=== PATIENT | male | born 1970 | race Caucasian/White ===

== ENCOUNTER 2016-05-31 05:40 | Inpatient (IN) | payer OTHER ==
[2016-05-16 10:47] LABS: HEMATOCRIT 41.2 % (40.0-51.0); HEMOGLOBIN 14.9 g/dL (13.6-17.8)
[2016-05-16 10:53] LABS: CALCIUM, SERUM 8.6 MG/DL (8.5-10.4); CHLORIDE, SERUM 106 MMOL/L (96-112); CO2 (CARBON DIOXIDE) 27 MMOL/L (24-34); CREATININE 0.88 MG/DL (0.70-1.30); GFR AFRICAN AMERICAN 120 ML/MIN (>=60); GFR NON AFRICAN AMERICAN 104 ML/MIN (>=60); GLUCOSE, SERUM 94 MG/DL (60-99); POTASSIUM, SERUM 4.1 MMOL/L (3.5-5.3); SODIUM, SERUM 141 MMOL/L (135-148)
[2016-05-16 10:54] LABS: BUN (BLOOD UREA NITROGEN) 27 MG/DL (6-23)
--- NOTE | ~2016-05-31 | OP ---
Record Of Operation [facility] [address] [place]. [address] NAME: CEDRIC MORFIN : 70 STATUS : ADM IN PAT#: [id number] AGE: 45 ADM/REG DATE : 05/31/16 MR#: [id number] REPORT SERV DATE: 05/31/16 DICTATED BY: CEDRIC MILLER DATE: 05/31/16 REPORT STATUS : Draft TRANSCRIBED BY: MODL DATE: 05/31/16 DATE OF PROCEDURE: 05/31/2016 PREOPERATIVE DIAGNOSES: 1. Marfan syndrome. 2. Scoliosis with approximately 75 degree curve. 3. Lumbar disk disease and stenosis, with lumbar radiculopathy, with left leg pain and weakness. POSTOPERATIVE DIAGNOSES: 1. Marfan syndrome. 2. Scoliosis with approximately 75 degree curve. 3. Lumbar disk disease and stenosis, with lumbar radiculopathy, with left leg pain and weakness. PROCEDURE: 1. T11 to ilium segmental spinal instrumentation using Medtronic pedicle screws. 2. Use of intraoperative O-arm CT scan with computer navigation. 3. Use of neuromonitoring. SURGEON: Cedric Miller DO. ANESTHESIA: General. ESTIMATED BLOOD LOSS: Approximately 1250 mL of which approximately 1100 was returned via Cell Saver, as well as approximately 2300 mL of crystalloid. COMPLICATIONS: None. INDICATIONS: The patient is a pleasant 45-year-old with progressive scoliosis, difficulty with ambulating. After discussion of risks and benefits, and progressive deformity, he elected to proceed with surgical intervention. PROCEDURE IN DETAIL: I identified the patient in the holding area, consent was obtained, went to the operating room, underwent general anesthesia with endotracheal intubation, prepped and draped in the usual sterile fashion, operative safety pause was performed, then we proceeded with surgery. A midline longitudinal incision was made from T11 down to the ilium. Paraspinous muscle subperiosteally elevated. Self-retaining retractors were placed. O-arm registration frame was placed on the spinous process. O-arm was brought back in for CT scan. Computer registration materials verified and then under computer guidance, pedicle screws from Medtronic were placed from T11 down to the ilium. O-arm was brought back in to confirm good placement of all the pedicle screws. Due to the patient's being on Coumadin, and subsequent Lovenox, as well as Marfan syndrome, there was significant bleeding, he had lost approximately 1250 mL of blood, and at that point, I decided to stage the procedure and finished at another point given the degree of blood loss, the remaining decompression, interbody fusion, and decortication portions would have caused significant additional Record Of Operation [place] [address] [place]. [address] NAME: CEDRIC MORFIN : 70 STATUS : ADM IN PAT#: [id number] AGE: 45 ADM/REG DATE : 05/31/16 MR#: [id number] REPORT SERV DATE: 05/31/16 DICTATED BY: CEDRIC MILLER DATE: 05/31/16 REPORT STATUS : Draft TRANSCRIBED BY: MODL DATE: 05/31/16 bleeding, and put the patient at higher risk. As a result, I stopped at this point, a drain was placed. A gram of vancomycin powder was sprinkled over the surgical wound. Layered closure was performed. Sterile dressings were applied. The patient returned to the recovery room, awoke, and extubated. We will plan to return to surgery on Thursday for the second stage of the procedure once he has had time to normalize his hemodynamic status. CORRINA/JOSHUA Cedric Miller DO / [id number] CC: Cedric Miller DO
--- NOTE | ~2016-05-31 | PREOPHP ---
PreOp History and Physical [address] [place]. [address] NAME: CEDRIC MORFIN : 70 STATUS : ADM IN PAT#: [id number] AGE: 45 ADM/REG DATE : 05/31/16 MR#: [id number] REPORT SERV DATE: 05/31/16 DICTATED BY: CEDRIC TRAN DATE: 05/31/16 REPORT STATUS : Draft TRANSCRIBED BY: JOSHUA DATE: 05/31/16 CHIEF COMPLAINT: Progressive neuromuscular scoliosis with history of Marfan's. HISTORY OF PRESENT ILLNESS: The patient is a 45-year-old with progressive scoliosis, history of Marfan's disease. He has failed conservative treatment and after progressive deformity, the patient elects to proceed with surgical intervention. He also complains of significant left lower extremity pain. REVIEW OF SYSTEMS: He denies chest pain, shortness of breath, and bowel or bladder changes. ALLERGIES: DENIED. HOME MEDICATIONS: Losartan, metoprolol, warfarin. FAMILY HISTORY: Noncontributory. PAST MEDICAL HISTORY: Cardiac disease with Marfan syndrome. PHYSICAL EXAMINATION: VITALS: Height 6 feet 6 inches, weight 200, BMI 23.1. GENERAL: The patient is healthy appearing, no acute distress at this time. PSYCH: Alert and oriented x3. Normal mood and affect. Gait is somewhat antalgic. VASCULAR: No extremity swelling. SPINE: Scoliotic curvature. Somewhat forward flexed. HEART: Regular rate and rhythm. LUNGS: Clear to auscultation. ABDOMEN: Soft, nontender, nondistended. Good bowel sounds. BREASTS: Both deferred. RECTAL: Both deferred. IMAGING: Plain imaging showed a 9.6 cm positive sagittal balance and a scoliosis of 73 degrees from T12 to L4. MRI scan was also reviewed. ASSESSMENT: Progressive neuromuscular scoliosis with history of Marfan. PLAN: The patient presents today for surgical intervention. Consent was obtained. All questions were answered and ready to proceed with surgery. CORRINA/JOSHUA Cedric Tran DO / [id number] PreOp History and Physical [address] [place]. [address] NAME: HOLGERCEDRIC WAYNE SHEKHAR : 70 STATUS : ADM IN PAT#: [id number] AGE: 45 ADM/REG DATE : 05/31/16 MR#: [id number] REPORT SERV DATE: 05/31/16 DICTATED BY: CEDRIC TRAN DATE: 05/31/16 REPORT STATUS : Draft TRANSCRIBED BY: MODL DATE: 05/31/16 CC: Cedric Tarn, DO
--- NOTE | ~2016-05-31 | DS ---
Discharge Summary [place] [id number] [facility] [place]. [address] NAME: CEDRIC MORFIN : 70 STATUS : DIS IN PAT#: [id number] AGE: 45 ADM/REG DATE : 05/31/16 MR#: [id number] REPORT SERV DATE: 06/19/16 DICTATED BY: CEDRIC MILLER DATE: 06/18/16 REPORT STATUS : Draft TRANSCRIBED BY: MODL DATE: 06/18/16 Data Collection from hospitalization DISCHARGE DIAGNOSES: 1. Marfan syndrome. 2. Scoliosis with approximately 75-degree curve. 3. Lumbar disk disease and stenosis with lumbar radiculopathy with left leg pain and weakness. 4. Hypertension. 5. History of atrial fibrillation. CONSULTATION: Dr. Kasia Duke. PROCEDURES: 1. T11 to ilium segmental spinal instrumentation using Medtronic pedicle screws, use of intraoperative O-arm CT scan with computer navigation, use of neuromonitoring, 05/31/2016. 2. Second-stage T11-S1 posterolateral fusion bilaterally, L1-S1 laminectomy and bilateral foraminotomies, L4-L5 transforaminal lumbar interbody fusion, placement of Medtronic PEEK interbody spacer, L4-L5 local morselized autograft and allograft bone matrix, neuro monitoring, bone morphogenetic protein, correction of sagittal and coronal plane deformity, placement of rods to connect the previously placed pedicle screws, T11 to the ilium, 06/03/2016. PATHOLOGY: Bone and tissue, thoracic/lumbar-fragments of bone and cartilage with degenerative changes, skeletal muscle and bone with trilineage, hematopoiesis elements present. Bone and tissue thoracic/lumbar spine-fragments of hyaline cartilage with degenerative changes. Fibroadipose tissue, dense fibrous connective tissue, and bone present. DISCHARGE MEDICATIONS: Flexeril 10 mg every eight hours as needed, Cozaar 50 mg every evening, Lopressor 50 mg at bedtime, Percocet 5/325 one to two tablets every four hours as needed, Jantoven 10 mg daily, Coumadin as instructed. CONDITION ON DISCHARGE: Stable. DISPOSITION: The patient was discharged home on a vegetarian diet with activities as instructed. He would follow up with [facility], 06/16/2016 with [facility], 06/11/2016. HOSPITAL COURSE: This is a 45-year-old man, who has a history of Marfan disease. He had failed conservative treatment and after progressive deformity, he elected to proceed with surgical intervention. He had also complained of significant left lower extremity pain. Treatment options were discussed and it was elected to proceed with surgical intervention. He was admitted to the hospital at this time for further evaluation and treatment. Upon admission, he was taken to the operating room, where he underwent the above-mentioned procedure. He tolerated this well. There were no complications. Postoperatively, he was seen by Dr. Kasia Duke, regarding medical management including management of hypertension Discharge Summary [address] [address] NAME: CEDRIC MORFIN SHEKHAR : 70 STATUS : DIS IN PAT#: [id number] AGE: 45 ADM/REG DATE : 05/31/16 MR#: [id number] REPORT SERV DATE: 06/19/16 DICTATED BY: CEDRIC MILLER DATE: 06/18/16 REPORT STATUS : Draft TRANSCRIBED BY: MODNirali DATE: 06/18/16 medications and managing his history of atrial fibrillation and Coumadin. Home medications for hypertension were restarted with losartan and metoprolol. The patient seemed to be in sinus rhythm at this time; however, we were going to check an EKG. The patient said that the atrial fibrillation in the past had resolved after he had cardiac ablation. The patient has had aortic valve replacement and mitral valve replacement with metallic AOV. He is on Coumadin for this. The Coumadin was going to be restarted if this was okay with Ortho. We would take daily PT and INR. CBC and BMP would also be checked the following morning. On postop day #1, he had no new complaints. He was on a PRESS [employer] pump. Losartan would be held for systolic blood pressure less than 90. He was up sitting in a bedside chair. Blood pressure was stable. Plans were being made for stage II surgical intervention to be performed. He was not going to be placed on heparin or Coumadin at this time. He was evaluated by Physical Therapy. He did develop some nausea and distention in his abdomen. He had not had a bowel movement. He was felt to have a mild ileus. Narcotics were decreased. An enema was given as well as Relistor. On 06/03/2016, he was taken back to the operating room where he underwent the above-mentioned procedure. He tolerated this well and there were no complications. On the 06/04/2016, he had no chest pain. He appeared comfortable. Postural hypotension had resolved. He was evaluated by Occupational and Physical Therapy. On 06/06/2016, his Coumadin was restarted. He was on a heparin drip. He continued to do well. He had no shortness of breath or chest pain. He was ambulating in the halls. He did complain of some bilateral foot numbness. Toprol was continued as well as his Coumadin. INR level had increased to 2.1. On 06/10/2016, his pain was controlled. He was doing well. He was eager for discharge. Discharge instructions were given. IV heparin was stopped. Due to his improved and stable condition, he was discharged home with the above-stated instructions. Information collected by: Shaila Warner I submit the above information as my discharge summary. MAMTA/JOSHUA Cedric Miller DO / [id number] CC: Cedric Miller DO
--- NOTE | ~2016-05-31 | CN ---
Consultation Report [facility] [address] [place]. [address] NAME: CEDRIC MORFIN : 70 STATUS : ADM IN [facility]#: [id number] AGE: 45 ADM/REG DATE : 05/31/16 MR#: [id number] REPORT SERV DATE: 05/31/16 DICTATED BY: MARJORIE CARRION DATE: 05/31/16 REPORT STATUS : Draft TRANSCRIBED BY: MODL DATE: 05/31/16 CONSULTATION DATE OF CONSULTATION: 05/31/2016 REASON FOR CONSULTATION: Medical management including management of his hypertension, medications, and managing his history of atrial fibrillation and Coumadin REASON FOR ADMISSION: Operative management of severe spinal scoliosis that is symptomatic. The operation that the patient underwent is actually T11 to ilium spinal instrumentation with Medtronic pedicle screws. When I examined the patient at bedside, he was back from surgery and he was on a SALES PROJECT ADMINISTRATOR pump. The patient actually is asymptomatic at that time. He says that he has no chest pain or shortness of breath. He does complain of some back pain, but other than that, there are no other new complaints. He denies any blurry vision, dysphagia dyspnea. He denies any nausea, vomiting, abdominal pain, diarrhea, dysuria, hematuria, joint pains, etc. REVIEW OF SYSTEMS: As above. PAST MEDICAL HISTORY: Significant for: 1. Hypertension. 2. Marfan syndrome with valve abnormalities in his aortic valve and mitral valve which required cardiothoracic surgery and replacement of both valves with a metallic valve according to the patient. The patient also has had is aortic root repaired, this is in the past. 3. History of atrial fibrillation, which resolved and went into sinus rhythm after he had cardiac ablation. Currently, the patient is in sinus rhythm. He says that he takes his Coumadin for the metallic aortic valve. PAST SURGICAL HISTORY: As above. FAMILY HISTORY: Positive for Marfan syndrome in many of his relatives including his grandfather and other people in the family including brother and etc. His daughter also has Marfan syndrome and is 12 years old now. SOCIAL HISTORY: The patient does not smoke or any tobacco. The patient denies any significant alcohol use. The patient denies any illegal drug use. 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 Medications that he takes at home and allergies are as follows. ALLERGIES: THE PATIENT HAS NO KNOWN DRUG ALLERGIES. MEDICATIONS: His medications at home include losartan 50 mg once a day, Lopressor 50 mg once Consultation Report [address] [place]. [address] NAME: CEDRIC MORFIN : 70 STATUS : ADM IN PAT#: [id number] AGE: 45 ADM/REG DATE : 05/31/16 MR#: [id number] REPORT SERV DATE: 05/31/16 DICTATED BY: MARJORIE CARRION DATE: 05/31/16 REPORT STATUS : Draft TRANSCRIBED BY: MODL DATE: 05/31/16 at bedtime, and Jantoven 10 mg once a day except which he takes 5 mg. PHYSICAL EXAMINATION: GENERAL: The patient is alert, oriented, and is able to answer most of my questions appropriately. His skin and mucous membranes appear moist and he is on a SALES PROJECT ADMINISTRATOR pump right now back from surgery. VITAL SIGNS: Show that his blood pressure is 104/78, pulse is 63 per minute and regular, respirations 16 per minute, and O2 sats 94% on 4 L of oxygen currently. HEENT: Unremarkable. GENERAL APPEARANCE: The patient does have a marfanoid features especially in his hands with excessively long fingers. There is no facial asymmetry or facial droop. NECK: There is no JVD, thyromegaly, or lymphadenopathy. CARDIOVASCULAR SYSTEM: S1, S2 appreciated. Sinus rhythm noted. Metallic aortic valve is audible. RESPIRATORY SYSTEM: Clear lungs. No rales or rhonchi noted at this time. ABDOMEN: Soft, nontender, nondistended. No hepatosplenomegaly or organomegaly noted at this time. EXTREMITIES: No edema. Pedal pulses are well felt. NEUROLOGIC: Essentially normal. ORTHOPEDIC: The patient has had extensive spinal surgery namely instrumentation with metal screws all the way from T11 all the way to the iliac bone. This is to correct his scoliosis. PSYCHIATRIC: Normal affect. LABORATORY DATA: Labs that I have on this patient from 05/31/2016 include CBC that shows WBC count of 9.8, hemoglobin 12.2, hematocrit 35.1, and platelet count of 218. Electrolyte profile shows sodium 140, potassium 4.7, BUN 15, and creatinine 0.7. I also have a pro time on this patient that shows an INR of 1.4. ASSESSMENT: 1. We will go ahead and restart his home medications for hypertension namely losartan and metoprolol. 2. History of atrial fibrillation. Right now, the patient seems to be in sinus rhythm; however, we will check an EKG. The patient says that the atrial fibrillation in the past has resolved after he has had cardiac ablation. 3. History of AOV replacement and mitral valve replacement with metallic AOV. The patient is on Coumadin for this. We will go ahead and restart Coumadin only in the morning if okay with Dr. Miller. We will go ahead and check a daily PT/INR. We will check a CBC and BMP in the morning too. 4. In the meantime for bridge therapy, we will start him on IV heparin per cardiac protocol without any bolus again if okay with Dr. Miller today. If Dr. Miller does not feel that heparin is a good option today as he has just had back surgery, we will not start the heparin today. We will follow the patient along with you. Thank you for the consultation. Consultation Report [address] [address] NAME: CEDRIC MORFIN : 70 STATUS : ADM IN [facility]#: [id number] AGE: 45 ADM/REG DATE : 05/31/16 MR#: [id number] REPORT SERV DATE: 05/31/16 DICTATED BY: MARJORIE CARRION DATE: 05/31/16 REPORT STATUS : Draft TRANSCRIBED BY: JOSHUA DATE: 05/31/16 MARTITA/JOSHUA Marjorie Carrion M.D. / [id number] CC: Cedric Miller DO
--- NOTE | ~2016-05-31 | OP ---
Record Of Operation [facility] [address] [place]. [address] NAME: CEDRIC MORFIN : 70 STATUS : ADM IN PAT#: [id number] AGE: 45 ADM/REG DATE : 05/31/16 MR#: [id number] REPORT SERV DATE: 06/03/16 DICTATED BY: CEDRIC TRAN DATE: 06/03/16 REPORT STATUS : Draft TRANSCRIBED BY: MODL DATE: 06/03/16 DATE OF PROCEDURE: 06/03/2016 PREOPERATIVE DIAGNOSES: 1. Progressive neuromuscular scoliosis with history of Marfan syndrome. 2. L1-S1 disk disease and stenosis with lumbar radiculopathy. 3. Kyphotic deformity. POSTOPERATIVE DIAGNOSES: 1. Progressive neuromuscular scoliosis with history of Marfan syndrome. 2. L1-S1 disk disease and stenosis with lumbar radiculopathy. 3. Kyphotic deformity. PROCEDURES: This is the second stage of the procedure. The procedure started on Thursday and returning to the operating room today. Today, we performed: 1. T11-S1 posterolateral fusion bilaterally. 2. L1-S1 laminectomy and bilateral foraminotomies. 3. L4-L5 transforaminal lumbar interbody fusion. 4. Placement of Medtronic PEEK interbody spacer, L4-L5. 5. Local morcellized autograft and allograft bone matrix. 6. Neuromonitoring. 7. Bone morphogenic protein. 8. Correction of sagittal and coronal plane deformity. 9. Placement of rods to connect the previously placed pedicle screws, T11 to the ilium. SURGEON: Cedric Tran DO. ANESTHESIA: General. ESTIMATED BLOOD LOSS: 700 mL. COMPLICATIONS: None. INDICATIONS: The patient is a 45-year-old, being brought back for a second stage for the procedure started Thursday. Please see that operative note for details. DESCRIPTION OF PROCEDURE: I identified the patient in the holding area. Consent was obtained. Went to the operating room. Underwent general anesthesia with endotracheal intubation. Prepped and draped in the usual sterile fashion. Operative safety pause was performed, then we proceeded with surgery. The previously made incision was opened. Sutures were removed. A rongeur was used to remove the spinous processes and underlying lamina, L1 down to S1. Abimael removed remaining lamina, underlying ligamentum flavum, and performed foraminotomies and partial facetectomies bilaterally L1-S1 fraying the L1-S1 nerve roots. The disk space at the L4-5 level was identified on the right side and incised with a knife. Disk space was prepared with curettes, rasp, and endplate cutters. Trial spacers were implanted. Local morcellized autograft and allograft bone matrix were placed in the L4 Record Of Operation [address] [address] NAME: CEDRIC MORFIN SHEKHAR : 70 STATUS : ADM IN PAT#: [id number] AGE: 45 ADM/REG DATE : 05/31/16 MR#: [id number] REPORT SERV DATE: 06/03/16 DICTATED BY: CEDRIC TRAN DATE: 06/03/16 REPORT STATUS : Draft TRANSCRIBED BY: JOSHUA DATE: 06/03/16 5 disk space followed by a Medtronic PEEK interbody spacer with allograft bone matrix. Rods were then cut and contoured to appropriate shape and length, placed over the screws from T11 to the ilium that were placed previously. The emmanuel was gradually reduced down to the screws bilaterally to allow for both coronal and sagittal plane reduction of deformity. Setscrews were placed and final tightened. Final reduction maneuvers were made with in situ Benders for good correction. High-speed decorticating naga was used to decorticate the remaining bony surfaces T11 to the ilium. Irrigation was performed. Hemostasis was achieved. Local morcellized autograft and allograft bone matrix, and bone morphogenic protein were each packed over the decorticated surfaces T11 to the ilium. Final AP and lateral images were obtained. A gram of vancomycin powder was sprinkled over the surgical wound. Subfascial drain was placed. Layered closure was performed. Sterile dressings were applied. The patient was awoken and extubated, and taken to the recovery room in stable condition. OPERATIVE FINDINGS: Neuromuscular scoliosis with severe disk disease and stenosis. No sustained neuromonitoring alerts. CORRINA/JOSHUA Cedric Tran DO / [id number] CC: Cedric Tran, DO
[~2016-05-31 05:40] MED LIST: C5 PO; COZ50 PO; JANTOVEN10 MG PO; LOP50 PO; LOVENOX
[2016-05-31 06:39] LABS: INTERNATIONAL NORMAL RATI 1.4 UNITS (-)
[2016-05-31 06:40] LABS: PROTIME (NOT ORD) 17.2 SEC (12.0-14.5)
[2016-05-31 11:43] LABS: BASOPHILS 0.1 %; BASOPHILS ABSOLUTE 0.01 10/3/uL (0.0-0.16); EOSINOPHILS 0 %; HEMOGLOBIN 12.2 g/dL (13.6-17.8); IMMATURE GRANULOCYTES 0.8 %; IMMATURE GRANULOCYTES ABSOLUTE 0.08 10/3/uL (0.0-0.11); LYMPHOCYTES ABSOLUTE 0.49 10/3/uL (0.67-4.30); MEAN CORPUS HGB CONC 34.8 g/dL (32.0-36.0); MEAN CORPUSCULAR HEMOGLOB 31.7 pg (26.0-34.0); MEAN CORPUSCULAR VOLUME 91.2 fL (80-100); MEAN PLATELET VOLUME 9.3 fL (9.2-13.0); MONOCYTES 1.7 %; MONOCYTES ABSOLUTE 0.17 10/3/uL (0.21-1.20); NEUTROPHILS 92.4 %; NEUTROPHILS ABSOLUTE 9.07 10/3/uL (2.02-8.40); PLATELET COUNT 218 10/3/uL (150-400); RBC DISTRIBUTION WIDTH 12.2 % (12.0-16.0); RED CELL COUNT 3.85 10/6/uL (4.7-6.1); WHITE BLOOD CELLS 9.8 10/3/uL (4.5-10.5)
[2016-05-31 11:46] LABS: HEMATOCRIT 35.1 % (40.0-51.0); MANUAL DIFF NO %
[2016-05-31 11:57] LABS: CHLORIDE, SERUM 108 MMOL/L (96-112); CO2 (CARBON DIOXIDE) 26 MMOL/L (24-34); CREATININE 0.74 MG/DL (0.70-1.30); GFR AFRICAN AMERICAN 129 ML/MIN (>=60); GFR NON AFRICAN AMERICAN 111 ML/MIN (>=60); SODIUM, SERUM 140 MMOL/L (135-148)
[2016-05-31 11:58] LABS: BUN (BLOOD UREA NITROGEN) 15 MG/DL (6-23); CALCIUM, SERUM 7.6 MG/DL (8.5-10.4); GLUCOSE, SERUM 131 MG/DL (60-99); POTASSIUM, SERUM 4.7 MMOL/L (3.5-5.3)
[2016-06-01 05:09] LABS: BASOPHILS 0 %; EOSINOPHILS 0 %; HEMATOCRIT 31.6 % (40.0-51.0); HEMOGLOBIN 11.5 g/dL (13.6-17.8); IMMATURE GRANULOCYTES 0.2 %; IMMATURE GRANULOCYTES ABSOLUTE 0.02 10/3/uL (0.0-0.11); LYMPHOCYTES 4.9 %; LYMPHOCYTES ABSOLUTE 0.53 10/3/uL (0.67-4.30); MEAN CORPUS HGB CONC 36.4 g/dL (32.0-36.0); MEAN CORPUSCULAR HEMOGLOB 33.1 pg (26.0-34.0); MEAN CORPUSCULAR VOLUME 91.1 fL (80-100); MONOCYTES 7.4 %; NEUTROPHILS 87.5 %; NEUTROPHILS ABSOLUTE 9.42 10/3/uL (2.02-8.40); PLATELET COUNT 215 10/3/uL (150-400); RBC DISTRIBUTION WIDTH 11.8 % (12.0-16.0); RED CELL COUNT 3.47 10/6/uL (4.7-6.1); WHITE BLOOD CELLS 10.8 10/3/uL (4.5-10.5)
[2016-06-01 05:10] LABS: MANUAL DIFF NO %
[2016-06-01 05:17] LABS: INTERNATIONAL NORMAL RATI 1.4 UNITS (-); PROTIME (NOT ORD) 16.7 SEC (12.0-14.5)
[2016-06-01 05:22] LABS: BUN (BLOOD UREA NITROGEN) 9 MG/DL (6-23); CHLORIDE, SERUM 105 MMOL/L (96-112); CO2 (CARBON DIOXIDE) 26 MMOL/L (24-34); GFR AFRICAN AMERICAN 125 ML/MIN (>=60); GFR NON AFRICAN AMERICAN 108 ML/MIN (>=60); GLUCOSE, SERUM 135 MG/DL (60-99); POTASSIUM, SERUM 4.2 MMOL/L (3.5-5.3); SODIUM, SERUM 140 MMOL/L (135-148)
[2016-06-02 04:51] LABS: HEMATOCRIT 29.5 % (40.0-51.0); HEMOGLOBIN 10.2 g/dL (13.6-17.8)
[2016-06-02 04:59] LABS: INTERNATIONAL NORMAL RATI 1.3 UNITS (-); PROTIME (NOT ORD) 16.5 SEC (12.0-14.5)
[2016-06-02 05:40] LABS: PARTIAL THROMBO TIME > 150.0 SEC (22.5-37.2)
[2016-06-03 04:56] LABS: INTERNATIONAL NORMAL RATI 1.2 UNITS (-); PROTIME (NOT ORD) 15.1 SEC (12.0-14.5)
[2016-06-03 11:19] LABS: BASOPHILS 0.1 %; BASOPHILS ABSOLUTE 0.01 10/3/uL (0.0-0.16); EOSINOPHILS 0.1 %; EOSINOPHILS ABSOLUTE 0.01 10/3/uL (0.0-0.53); HEMOGLOBIN 9.1 g/dL (13.6-17.8); IMMATURE GRANULOCYTES 0.9 %; IMMATURE GRANULOCYTES ABSOLUTE 0.07 10/3/uL (0.0-0.11); LYMPHOCYTES 7.1 %; LYMPHOCYTES ABSOLUTE 0.56 10/3/uL (0.67-4.30); MANUAL DIFF NO %; MEAN CORPUSCULAR HEMOGLOB 32.6 pg (26.0-34.0); MEAN CORPUSCULAR VOLUME 93.2 fL (80-100); MEAN PLATELET VOLUME 8.8 fL (9.2-13.0); MONOCYTES 5.1 %; NEUTROPHILS 86.7 %; PLATELET COUNT 184 10/3/uL (150-400); RBC DISTRIBUTION WIDTH 12.1 % (12.0-16.0); RED CELL COUNT 2.79 10/6/uL (4.7-6.1); WHITE BLOOD CELLS 7.9 10/3/uL (4.5-10.5)
[2016-06-03 11:25] LABS: BUN (BLOOD UREA NITROGEN) 8 MG/DL (6-23); CALCIUM, SERUM 7.4 MG/DL (8.5-10.4); CHLORIDE, SERUM 104 MMOL/L (96-112); CO2 (CARBON DIOXIDE) 27 MMOL/L (24-34); CREATININE 0.74 MG/DL (0.70-1.30); GFR AFRICAN AMERICAN 129 ML/MIN (>=60); GFR NON AFRICAN AMERICAN 111 ML/MIN (>=60); GLUCOSE, SERUM 131 MG/DL (60-99); POTASSIUM, SERUM 4.2 MMOL/L (3.5-5.3); SODIUM, SERUM 139 MMOL/L (135-148)
[2016-06-03 18:58] LABS: HEMATOCRIT 24.4 % (40.0-51.0); HEMOGLOBIN 8.6 g/dL (13.6-17.8)
[2016-06-04 04:52] LABS: BASOPHILS 0 %; EOSINOPHILS 0 %; HEMATOCRIT 22.8 % (40.0-51.0); HEMOGLOBIN 8.1 g/dL (13.6-17.8); IMMATURE GRANULOCYTES 0.6 %; IMMATURE GRANULOCYTES ABSOLUTE 0.05 10/3/uL (0.0-0.11); LYMPHOCYTES 10.1 %; LYMPHOCYTES ABSOLUTE 0.84 10/3/uL (0.67-4.30); MEAN CORPUS HGB CONC 35.5 g/dL (32.0-36.0); MEAN CORPUSCULAR HEMOGLOB 33.1 pg (26.0-34.0); MEAN CORPUSCULAR VOLUME 93.1 fL (80-100); MONOCYTES 11.8 %; MONOCYTES ABSOLUTE 0.98 10/3/uL (0.21-1.20); NEUTROPHILS 77.5 %; NEUTROPHILS ABSOLUTE 6.42 10/3/uL (2.02-8.40); PLATELET COUNT 206 10/3/uL (150-400); RBC DISTRIBUTION WIDTH 11.9 % (12.0-16.0); RED CELL COUNT 2.45 10/6/uL (4.7-6.1); WHITE BLOOD CELLS 8.3 10/3/uL (4.5-10.5)
[2016-06-04 04:53] LABS: MANUAL DIFF NO %
[2016-06-04 05:05] LABS: BUN (BLOOD UREA NITROGEN) 5 MG/DL (6-23); CALCIUM, SERUM 7.8 MG/DL (8.5-10.4); CHLORIDE, SERUM 102 MMOL/L (96-112); CO2 (CARBON DIOXIDE) 28 MMOL/L (24-34); CREATININE 0.66 MG/DL (0.70-1.30); GFR AFRICAN AMERICAN 135 ML/MIN (>=60); GFR NON AFRICAN AMERICAN 117 ML/MIN (>=60); GLUCOSE, SERUM 129 MG/DL (60-99); POTASSIUM, SERUM 4.1 MMOL/L (3.5-5.3); SODIUM, SERUM 138 MMOL/L (135-148)
[2016-06-04 11:59] LABS: HEMATOCRIT 25.5 % (40.0-51.0); HEMOGLOBIN 8.9 g/dL (13.6-17.8)
[2016-06-05 01:34] LABS: HEMOGLOBIN 7.8 g/dL (13.6-17.8)
[2016-06-05 01:35] LABS: HEMATOCRIT 22.5 % (40.0-51.0)
[2016-06-05 01:41] LABS: PARTIAL THROMBO TIME 71.7 SEC (22.5-37.2)
[2016-06-05 01:51] LABS: BUN (BLOOD UREA NITROGEN) 8 MG/DL (6-23); CALCIUM, SERUM 7.6 MG/DL (8.5-10.4); CHLORIDE, SERUM 99 MMOL/L (96-112); CO2 (CARBON DIOXIDE) 31 MMOL/L (24-34); CREATININE 0.74 MG/DL (0.70-1.30); GFR AFRICAN AMERICAN 129 ML/MIN (>=60); GFR NON AFRICAN AMERICAN 111 ML/MIN (>=60); GLUCOSE, SERUM 107 MG/DL (60-99); POTASSIUM, SERUM 3.7 MMOL/L (3.5-5.3); SODIUM, SERUM 137 MMOL/L (135-148)
[2016-06-05 05:15] LABS: INTERNATIONAL NORMAL RATI 1.3 UNITS (-); PROTIME (NOT ORD) 15.9 SEC (12.0-14.5)
[2016-06-06 04:45] LABS: BUN (BLOOD UREA NITROGEN) 8 MG/DL (6-23); CALCIUM, SERUM 7.6 MG/DL (8.5-10.4); CHLORIDE, SERUM 102 MMOL/L (96-112); CO2 (CARBON DIOXIDE) 28 MMOL/L (24-34); CREATININE 0.58 MG/DL (0.70-1.30); GFR AFRICAN AMERICAN 143 ML/MIN (>=60); GFR NON AFRICAN AMERICAN 123 ML/MIN (>=60); GLUCOSE, SERUM 104 MG/DL (60-99); POTASSIUM, SERUM 3.5 MMOL/L (3.5-5.3); SODIUM, SERUM 138 MMOL/L (135-148)
[2016-06-06 04:54] LABS: INTERNATIONAL NORMAL RATI 1.3 UNITS (-); PROTIME (NOT ORD) 15.6 SEC (12.0-14.5)
[2016-06-06 05:27] LABS: BASOPHILS 0.3 %; BASOPHILS ABSOLUTE 0.02 10/3/uL (0.0-0.16); EOSINOPHILS 1.7 %; EOSINOPHILS ABSOLUTE 0.12 10/3/uL (0.0-0.53); HEMATOCRIT 22.3 % (40.0-51.0); HEMOGLOBIN 7.9 g/dL (13.6-17.8); IMMATURE GRANULOCYTES 1.6 %; IMMATURE GRANULOCYTES ABSOLUTE 0.11 10/3/uL (0.0-0.11); LYMPHOCYTES 30.9 %; LYMPHOCYTES ABSOLUTE 2.12 10/3/uL (0.67-4.30); MEAN CORPUS HGB CONC 35.4 g/dL (32.0-36.0); MEAN CORPUSCULAR HEMOGLOB 31.7 pg (26.0-34.0); MEAN PLATELET VOLUME 8.6 fL (9.2-13.0); MONOCYTES 9.6 %; MONOCYTES ABSOLUTE 0.66 10/3/uL (0.21-1.20); NEUTROPHILS 55.9 %; NEUTROPHILS ABSOLUTE 3.83 10/3/uL (2.02-8.40); PLATELET COUNT 251 10/3/uL (150-400); RED CELL COUNT 2.49 10/6/uL (4.7-6.1); WHITE BLOOD CELLS 6.9 10/3/uL (4.5-10.5)
[2016-06-06 05:28] LABS: MANUAL DIFF NO %; MEAN CORPUSCULAR VOLUME 89.6 fL (80-100)
[2016-06-07 06:01] LABS: INTERNATIONAL NORMAL RATI 1.4 UNITS (-)
[2016-06-07 06:02] LABS: PARTIAL THROMBO TIME 77.1 SEC (22.5-37.2)
[2016-06-07 06:11] LABS: BUN (BLOOD UREA NITROGEN) 8 MG/DL (6-23); CALCIUM, SERUM 7.8 MG/DL (8.5-10.4); CHLORIDE, SERUM 104 MMOL/L (96-112); CO2 (CARBON DIOXIDE) 26 MMOL/L (24-34); CREATININE 0.67 MG/DL (0.70-1.30); GFR AFRICAN AMERICAN 134 ML/MIN (>=60); GFR NON AFRICAN AMERICAN 116 ML/MIN (>=60); GLUCOSE, SERUM 99 MG/DL (60-99); POTASSIUM, SERUM 3.7 MMOL/L (3.5-5.3); SODIUM, SERUM 138 MMOL/L (135-148)
[2016-06-07 07:21] LABS: BASOPHILS 0.6 %; BASOPHILS ABSOLUTE 0.04 10/3/uL (0.0-0.16); EOSINOPHILS ABSOLUTE 0.13 10/3/uL (0.0-0.53); IMMATURE GRANULOCYTES 4.7 %; IMMATURE GRANULOCYTES ABSOLUTE 0.31 10/3/uL (0.0-0.11); LYMPHOCYTES 27.5 %; LYMPHOCYTES ABSOLUTE 1.83 10/3/uL (0.67-4.30); MEAN CORPUS HGB CONC 35.4 g/dL (32.0-36.0); MEAN CORPUSCULAR HEMOGLOB 32.5 pg (26.0-34.0); MEAN CORPUSCULAR VOLUME 91.7 fL (80-100); MEAN PLATELET VOLUME 8.4 fL (9.2-13.0); MONOCYTES 10.8 %; MONOCYTES ABSOLUTE 0.72 10/3/uL (0.21-1.20); NEUTROPHILS 54.4 %; NEUTROPHILS ABSOLUTE 3.62 10/3/uL (2.02-8.40); PLATELET COUNT 273 10/3/uL (150-400); RBC DISTRIBUTION WIDTH 13.4 % (12.0-16.0); RED CELL COUNT 2.77 10/6/uL (4.7-6.1); WHITE BLOOD CELLS 6.7 10/3/uL (4.5-10.5)
[2016-06-07 07:24] LABS: HEMATOCRIT 25.4 % (40.0-51.0); MANUAL DIFF NO %
[2016-06-08 06:15] LABS: INTERNATIONAL NORMAL RATI 1.5 UNITS (-); PROTIME (NOT ORD) 17.9 SEC (12.0-14.5)
[2016-06-08 06:16] LABS: HEMOGLOBIN 9.7 g/dL (13.6-17.8)
[2016-06-08 06:17] LABS: PARTIAL THROMBO TIME 91.5 SEC (22.5-37.2)
[2016-06-08 06:17] LABS: HEMATOCRIT 28.2 % (40.0-51.0)
[2016-06-09 06:50] LABS: HEMATOCRIT 26.1 % (40.0-51.0)
[2016-06-09 07:06] LABS: BUN (BLOOD UREA NITROGEN) 8 MG/DL (6-23); CALCIUM, SERUM 7.9 MG/DL (8.5-10.4); CHLORIDE, SERUM 105 MMOL/L (96-112); CO2 (CARBON DIOXIDE) 26 MMOL/L (24-34); CREATININE 0.64 MG/DL (0.70-1.30); GFR AFRICAN AMERICAN 137 ML/MIN (>=60); GFR NON AFRICAN AMERICAN 118 ML/MIN (>=60); GLUCOSE, SERUM 104 MG/DL (60-99); SODIUM, SERUM 139 MMOL/L (135-148)
[2016-06-09 07:12] LABS: PARTIAL THROMBO TIME 95.3 SEC (22.5-37.2)
[2016-06-09 07:13] LABS: PROTIME (NOT ORD) 22.4 SEC (12.0-14.5)
[2016-06-09 13:18] LABS: INTERNATIONAL NORMAL RATI 2.1 UNITS (-); PROTIME (NOT ORD) 23.4 SEC (12.0-14.5)
[2016-06-10 06:08] LABS: INTERNATIONAL NORMAL RATI 2.1 UNITS (-); PROTIME (NOT ORD) 23.2 SEC (12.0-14.5)
[2016-06-10 06:09] LABS: HEMATOCRIT 27.3 % (40.0-51.0); HEMOGLOBIN 9.5 g/dL (13.6-17.8); PARTIAL THROMBO TIME 72.6 SEC (22.5-37.2)
[2016-06-10] MEDS ORDERED: FLEX PO (13:52)
[2016-06-10] MEDS ORDERED: PCET PO (13:52)
== END 2016-06-10 17:10 | disposition home or self-care (01) | DRG 457 ==
LOC: SDC/OF 05:40 → 3SO 12:49
PROVIDERS: Hospitalist; Orthopaedic Surgery
PROC: 0RGA0Z1 (ICD-10-PCS; 2016-05-31)
PROC: 0RG60Z1 (ICD-10-PCS; principal; 2016-05-31 07:15)
PROC: 0SG00AJ Fusion of Lumbar Vertebral Joint with Interbody Fusion Device, Posterior Approach, Anterior Column, Open Approach (ICD-10-PCS; 2016-06-03)
PROC: 4A11X4G Monitoring of Peripheral Nervous Electrical Activity, Intraoperative, External Approach (ICD-10-PCS; 2016-06-03)
PROC: 0RG60Z1 (ICD-10-PCS; 2016-06-03 06:45)
PROC: 0RGA0Z1 (ICD-10-PCS; 2016-06-03 06:45)
PROC: 30233N1 Transfusion of Nonautologous Red Blood Cells into Peripheral Vein, Percutaneous Approach (ICD-10-PCS; 2016-06-05)
DX: M51.16 Intervertebral disc disorders with radiculopathy, lumbar region (principal); Q87.40 Marfan syndrome, unspecified; M41.46 Neuromuscular scoliosis, lumbar region; I48.2 Chronic atrial fibrillation; Z79.01 Long term (current) use of anticoagulants; I10 Essential (primary) hypertension
CPT/HCPCS: 36415; 36430; 71010; 72082; 80048; 82962; 83735; 85014; 85018; 85025; 85610; 85730; 86850; 86900; 86901; 86920; 87641; 88304; 88311; 93005; 97110-GP; 97116-GP; 97161-GP; 97164-GP; 97165-GO; 97530-GP; 97535-GO; A9270-GY; C1713; J0690; J1170; J1644; J2250; J2270; J2370; J2405; J2550; J2710; J3010; J3370; P9016